=== PATIENT | female | born 1945 | race Caucasian/White ===

== ENCOUNTER 2020-08-09 08:40 | Day surgery (SDC) | payer OTHER ==
[2020-08-06 14:07] VITALS: BMI 22.3
[2020-08-09 11:06] VITALS: TEMP 97.9
[2020-08-09 11:32] VITALS: BP 110/67; PULSE 56
== END 2020-08-09 11:30 | disposition home or self-care (01) ==
LOC: FASU-ENDO 08:40
PROVIDERS: ATTEND Internal Medicine Gastroenterology
PROC: 0DBL8ZX Excision of Transverse Colon, Via Natural or Artificial Opening Endoscopic, Diagnostic (ICD-10-PCS; principal; 2020-08-09 10:23)
DX: Z09 Encounter for follow-up examination after completed treatment for conditions other than malignant neoplasm (principal); Z86.010 Personal history of colon polyps; D12.3 Benign neoplasm of transverse colon
CPT/HCPCS: 88305-TC